=== PATIENT | female | born 1935 | race Caucasian/White ===

== ENCOUNTER 2016-06-02 21:43 | Inpatient (IN) | payer OTHER, MEDICARE ==
[2016-06-02 22:13] LABS: ABSOLUTE NEUTROPHIL COUNT 5.6 K/mm3 (1.8-7.7); BASO % 0.5 % (0.2-1.0); EOS # 0.2 (0.0-0.5); EOS % 2.7 % (0.9-2.9); HEMATOCRIT 38.2 % (37.0-47.0); HEMOGLOBIN 12.6 gm/l (12.0-16.0); IMM NEUT% 0.5 % (0-1); LYMPH # 1.2 (1.0-4.8); LYMPH % 15.9 % (15-45); MEAN PLATELET VOLUME 9.3 fl (7.4-10.4); MONO # 0.7 (0.0-0.8); MONO % 8.7 % (4-12); NEUT % 71.7 % (43-75); PLATELET COUNT 278 K/mm3 (130-400); RED CELL DISTRIBUTION WIDTH 13.1 % (11.5-14.5)
[2016-06-02 22:27] LABS: ALB/GLOB RATIO 1.3 (>1.0); ALBUMIN 3.9 gm/dL (3.5-5.7); CALCIUM 9.2 mg/dL (8.6-10.3)
[2016-06-02] MEDS ORDERED: SODIUM CHLORIDE 0.9% 1,000 ML ONE (23:01)
[2016-06-02] MEDS ORDERED: ONDANSETRON 4 MG/2ML 2 ML VIAL ONE (23:01)
[2016-06-02] MEDS ORDERED: HYDROMORPHONE HCL 0.5 MG/0.5 ML SYRINGE ONE ×2 (23:01→23:34)
[2016-06-02] MEDS ORDERED: LIDOCAINE 2% UROJECT 10 ML ONE (23:01)
[2016-06-03 00:14] LABS: SPECIFIC GRAVITY 1.025 (1.001-1.030); URINE APPEARANCE CLEAR; URINE BILIRUBIN NEGATIVE (NEGATIVE); URINE BLOOD NEGATIVE (NEGATIVE); URINE COLOR LIGHT YELLOW; URINE GLUCOSE (UA) NEGATIVE (NEGATIVE); URINE LEUKOCYTE ESTERASE NEGATIVE (NEGATIVE); URINE NITRITE NEGATIVE (NEGATIVE); URINE PROTEIN NEGATIVE (NEGATIVE); URINE UROBILINOGEN NORMAL (0-1 mg/dl)
[2016-06-03 00:36] VITALS: BMI 23.4
[2016-06-03] MEDS ORDERED: MORPHINE SULFATE 2 MG/ML SYRINGE IV PRN ×2 (00:45→07:29)
[2016-06-03] MEDS ORDERED: HYDROcodone/ACETAM 7.5/325MG TABLET PO PRN (00:45)
[2016-06-03] MEDS ORDERED: MENTHOL/CETYLPYRD 1 EACH LOZENGE PO PRN (00:45)
[2016-06-03] MEDS ORDERED: ONDANSETRON 4 MG/2ML 2 ML VIAL IV PRN ×2 (00:45→12:48)
[2016-06-03] MEDS ORDERED: D5 1/2NS with 20 mEq KCL 1,000 ML IV SCH (00:45)
[2016-06-03] MEDS ORDERED: BLISTEX LIPSTICK 1 EACH TP PRN (00:45)
[2016-06-03] MEDS ORDERED: MORPHINE SULFATE 4 MG/ML SYRINGE ONE (00:54)
[2016-06-03] MEDS ORDERED: SODIUM CHLORIDE 0.9% FLUSH 10 ML ONE ×2 (00:54→08:42)
[2016-06-03] MEDS ORDERED: PUMP TUBING ONE ×2 (01:08→23:55)
[2016-06-03] MEDS ORDERED: MORPHINE SULFATE 4 MG/ML SYRINGE IV ONE (01:18)
[2016-06-03] MEDS ORDERED: INSULIN ASPART (DOSE) 100 UNITS/1 ML SUB-Q PRN ×2 (01:45→16:40)
[2016-06-03] MEDS ORDERED: MORPHINE SULFATE 4 MG/ML SYRINGE IV PRN ×2 (01:46→07:03)
[2016-06-03 02:32] LABS: INR 1.03; PROTHROMBIN TIME 10.8 SECONDS (9.3-11.4)
[2016-06-03 06:01] LABS: HEMATOCRIT 34.9 % (37.0-47.0); HEMOGLOBIN 11.5 gm/l (12.0-16.0); MEAN CELL VOLUME 88.4 fl (81.0-99.0); MEAN CORPUSCULAR HEMOGLOBIN 29.1 pg (27.0-31.0)
[2016-06-03 06:32] LABS: CALCIUM 10.2 mg/dL (8.6-10.3)
--- NOTE | 2016-06-03 07:02 | PDOC43 ---
- Subjective Subjective: Reports Pain Tolerable (Pt doing ok if she doesn't move her right leg. Pt did not have any pain prior to her fall. SHe has not had any recent colds. She would like to talk to me about the risks associated with non-op and surgical treatments), Denies Chest Pain, Denies Shortness of Breath, Denies Nausea, Denies Vomiting, Denies Fever - Objective Vital Signs Temperature 98.2 F 06/03/16 00:30 Pulse Rate 88 06/03/16 00:30 Respiratory Rate 16 06/03/16 06:24 Blood Pressure 127/73 06/03/16 00:30 O2 Saturation by Pulse Oximetry 97 06/03/16 00:30 Oxygen Delivery Method Room Air Oxygen Flow Rate 0 Laboratory 06/03/16 05:20 06/03/16 05:20 06/03/16 06/03/16 05:28 05:20 RBC 3.95 L Anion Gap 6 L Estimated GFR 96 H POC Capillary Glucose 231 H Active Medication Orders Category Date Time Status D5 1/2NS with 20 mEq KCL [D51/2NS with 20 mEq KCL] 1, Med 06/03/16 00:45 Active 000 ml IV 125 mls/hr Hydrocodone Bit/Acetaminophen [[place] 7.5/325] Med 06/03/16 00:45 Active 0.5 - 2 tab PO Q4H PRN Insulin Aspart (Dose) [Novolog (Dose)] Med 06/03/16 01:45 Active See Protocol SUB-Q WM/BEDTIME PRN Lip [place] [Blistex] Med 06/03/16 00:45 Active 1 each TP PRN PRN Menthol/Cetylpyridinium [Cepacol] Med 06/03/16 00:45 Active 1 each PO PRN PRN Morphine Sulfate Med 06/03/16 00:45 Active 2 - 4 mg IV Q1H PRN Morphine Sulfate Med 06/03/16 01:46 Active 2 - 4 mg IV Q1H PRN Ondansetron 4 mg/2ml Vial [Zofran] Med 06/03/16 00:45 Active 4 mg IV Q6H PRN Sodium Chloride 0.9% Flush [Normal Saline 10ml Flush] Med 06/03/16 00:45 Active 10 - 50 ml IV PRN PRN Intake and Output 06/01/16 06/02/16 06/03/16 23:59 23:59 23:59 Intake Total 1441 Output Total 850 Balance 591 General: Afebrile HEENT: EOMI Lungs: Clear to Auscultation Bilaterally Cardiovascular: Regular Rate and Rhythm - Left Lower Extremity Incision: No Ecchymosis Motor: Extensor Hallucis Longus: 5/5, Tibialis Anterior: 5/5, Gastrocnemius: 5/5 , Peroneals: 5/5 Gross Sensation to Light Touch: Present: Deep Peroneal Nerve, Superficial Peroneal Nerve, Medial Plantar Nerve, Lateral Plantar Nerve, Sural Nerve, Saphenous Nerve Capillary Refill: < 3 Seconds Motion: PROM: FF-->95 degrees, Abd: 30 degrees, IR: 10 degrees, ER: 20 degrees - Right Lower Extremity Incision: No Erythema, No Rash, No Ecchymosis Motor: Extensor Hallucis Longus: 4/5, Tibialis Anterior: 4/5, Gastrocnemius: 4/5 , Peroneals: 4/5 Gross Sensation to Light Touch: Present: Deep Peroneal Nerve, Superficial Peroneal Nerve, Medial Plantar Nerve, Lateral Plantar Nerve, Sural Nerve, Saphenous Nerve Capillary Refill: < 3 Seconds (No motion of the right hip is possible secondary to hip and groin pain. Positive logroll test) - Problems (1) Displaced fracture of right femoral neck Status: Acute - Disposition HD#1 s/p fall with a right displaced femoral neck fracture Pt is NPO with IVF. Please see dictated consultation for full ortho consult. --Spoke to the patient today about her problem. We discussed non-op and surgical treatments. The patient is a full code. --I recommended a right hip hemiarthroplasty. I spoke to her about the risks associated with surgery which include, but are not limited to, infection, dislocation, leg length discrepancy, persistent pain, need for future surgery, DVT, PE, pneumonia, NC, stroke and even --I will plan to speak to the medical team about the patient. Her PCP is Dr. Carolina at [facility]. --Ancef 2gm IV furnace combustion analyst to the OR.
--- NOTE | 2016-06-03 07:04 | CONS ---
Kathie Orona ADMIT DATE: 06/03/2016 ATTENDING PHYSICIAN: Dr. Frederic Owens. CONSULTING PHYSICIAN: Chucho Tong M.D. PRIMARY CARE PHYSICIAN: Kyleigh Carolina M.D. in [place], [place]. REASON FOR CONSULTATION: Perioperative medical management. HISTORY: Kathie is a 81-year-old female who is the for the most part healthy. She does have newly diagnosed diabetes as well as underlying hypertension. 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 She had immediate pain and was unable to bear weight. She did not suffer any other injuries. Did not hit her head. She was brought to the emergency room and was found to have a femoral neck fracture on the right. She was subsequently admitted to orthopedics with plans for hospitalist consult for medical clearance and perioperative management in preparation for surgery. REVIEW OF SYSTEMS: No headache. No visual symptoms. No difficulty swallowing. No chest pain or shortness of breath. No heart palpitations. No nausea, vomiting, diarrhea. No recent bowel or bladder changes. No extremity weakness, numbness, tingling or swelling other than her hip pain from her fracture. PAST MEDICAL HISTORY: 1. Hypertension. 2. Diabetes, this was just diagnosed within the last week or two by her primary care physician. She is undergoing diabetic education, but has not actually been started on any medications. PAST SURGICAL HISTORY: 1. Total abdominal hysterectomy in the distant past for bleeding ovaries remain. 2. Cholecystectomy. 3. Cataract surgery. 4. Bladder suspension surgery within the last year or two. ALLERGIES: No known drug allergies. CURRENT MEDICATIONS: Amlodipine 10 mg by mouth daily. SOCIAL HISTORY: She lives in [place]. She has a twin sister who lives nearby. Two sons and a daughter also live in the area. Her daughter is skirt trimmer of the [employer] here in [place] along with the patient's son-in-law. No alcohol, tobacco, or drug use. She is very active, vigorous, and continues to volunteer at the [employer] in [place]. FAMILY HISTORY: Father had cancer. Her grandmother had diabetes. Sister had diabetes. OBJECTIVE: VITAL SIGNS: Stable. She is afebrile. GENERAL: This is a well developed, well nourished elderly female. She is alert and calm. She is a bit sleepy from pain medications and in no distress. HEENT: Normocephalic, atraumatic. Tympanic membranes are intact. Orophyarnx is moist. NECK: Supple. LUNGS: Clear. HEART: Regular. ABDOMEN: Soft. EXTREMITIES: Right lower extremity is externally rotated. She is neurovascularly intact. No sensory deficits. No edema. LABORATORY: CBC with a white count of 7.8, hemoglobin 12.6, hematocrit 38.2, platelets 278, chemistry panel, sodium 140, potassium 3.8, chloride 108, carbon dioxide 26, BUN 25, creatinine 0.9, glucose 152, total bilirubin 0.8, AST 19, ALT 24, alk phos 59. Urinalysis is with 2+ ketones, otherwise clear. DIAGNOSTICS: EKG shows normal sinus rhythm. No acute ST or T-wave abnormalities. Pelvic x-ray's show a right femoral neck fracture. Chest x-ray with normal cardiac silhouette. No infiltrates or effusions. ASSESSMENT: 1. Ground level fall with a right hip femoral neck fracture. 2. Chronic hypertension at baseline. 3. Newly diagnosed diabetes within the last week. PLAN: She has been admitted to orthopedics with plans to go to surgery tomorrow. Management as per orthopedics. In regards to her hypertension we will resume her amlodipine as tolerated in the postoperative period. Parameters will be written. In regards to her newly diagnosed diabetes we will go ahead and place her on sliding scale only and follow closely. May consider long acting insulin as necessary while in the hospital otherwise, we will defer further management of this to the outpatient setting. Deep venous thrombosis will be as per orthopedics. Further care is dictated by clinical course. JOB: [id number] CC: Dr. Kyleigh Carolina
[2016-06-03] MEDS ORDERED: CEFAZOLIN SODIUM 2 GRAM PREMIX 2 G in Premix (D5W) 100 ml 1 EACH IV PRN (07:18)
--- NOTE | 2016-06-03 08:10 | RAD ---
RIGHT HIP AND AP PELVIS SERIES HISTORY: Ground level fall with right hip pain, initial encounter. Frontal view of the pelvis with frontal and crosstable lateral views of the right hip. PELVIC RING: Grossly intact taking into account rotation. HIP ALIGNMENT: Grossly unremarkable. HIP JOINT SPACES: Preserved. Minor osteophyte formation.. FRACTURE: Subcapital femoral neck fracture with associated varus and mild posterior angulation of the femoral shaft.. POSTSURGICAL CHANGE: Right-sided pelvic surgical clip. IMPRESSION: Subcapital right femoral neck fracture with associated varus angulation..
--- NOTE | 2016-06-03 08:15 | RAD ---
RIGHT KNEE 2 VIEWS HISTORY: Ground-level fall with right hip pain. Frontal and crosstable lateral views of the right knee. COMPARISON: None. ALIGNMENT: Grossly unremarkable.. JOINT SPACES: Moderate narrowing at the medial compartment with osteophyte formation... JOINT EFFUSION: Limited assessment due to obliquity of crosstable lateral view. CALCIFICATIONS: No abnormal calcifications noted. FRACTURE: No displaced acute fracture. IMPRESSION: Moderate degeneration of the medial compartment. No displaced acute fracture identified.
--- NOTE | 2016-06-03 08:16 | RAD ---
PORTABLE CHEST RADIOGRAPH HISTORY: Ground-level fall with right hip pain. Frontal portable chest radiograph dated 06/02/2016. COMPARISON: None. FINDINGS: FOCAL AIRSPACE OPACITY: No gross airspace consolidation. PLEURAL EFFUSION: None. CARDIOMEDIASTINAL SILHOUETTE: Borderline cardiomegaly. Tortuous, ectatic aorta. PNEUMOTHORAX: None identified. OSSEOUS STRUCTURES: No grossly destructive lesions. IMPRESSION: Borderline cardiomegaly without vascular congestion or pulmonary edema. Tortuous, ectatic aorta.
[2016-06-03] MEDS ORDERED: IV START KIT ONE ×2 (08:42→11:19)
[2016-06-03] MEDS ORDERED: SODIUM CHLORIDE 0.9% 1,000 ML IV SCH (08:45)
[2016-06-03] MEDS ORDERED: PRIMARY W/MICRODRIP 60 DROPS/ML ONE (11:06)
[2016-06-03] MEDS ORDERED: LACTATED RINGERS 1,000 ML ONE (11:19)
[2016-06-03] MEDS ORDERED: MIDAZOLAM HCL 5 MG/5 ML VIAL ONE (11:53)
[2016-06-03] MEDS ORDERED: FENTANYL 5 ML ONE (11:53)
[2016-06-03] MEDS ORDERED: PROPOFOL 20 ML IV ONE (11:55)
[2016-06-03] MEDS ORDERED: BUPIVACAINE 0.75% SPINAL AMPUL 2 ML ONE (11:56)
[2016-06-03] MEDS ORDERED: SPINAL PROCEDURAL TRAY 1 EACH ONE (11:56)
[2016-06-03] MEDS ORDERED: PROMETHAZINE HCL 25 MG/ML VIAL IM PRN (12:48)
[2016-06-03] MEDS ORDERED: FENTANYL 100 MCG/2 ML VIAL IV PRN (12:48)
[2016-06-03] MEDS ORDERED: HYDROMORPHONE HCL 1 MG/ML SYRINGE IV PRN (12:48)
[2016-06-03] MEDS ORDERED: EPHEDRINE SULFATE 50 MG/ML 1ML VIAL ONE (12:48)
[2016-06-03] MEDS ORDERED: LACTATED RINGERS 1,000 ML IV SCH (13:00)
--- NOTE | 2016-06-03 15:02 | PCMBPN ---
Brief Post Op Note: Date of Procedure: 06/03/16 Preoperative Diagnosis: 1. Right hip displaced femoral neck fracture Postoperative Diagnosis: 1. [Same] Procedure: Right hip hemiarthroplasty Surgeon: Frederic Owens MD Assist: Emigdio DUARTE, Shad DAVENPORT Anesthesia: Spinal Findings: as expected, the patient has a Depuy Size 4 Hitchcock Stem, Unipolar 47 and a -3 head and a std neck Condition: extubated, stable vitals, transferred to pacu Complications: None IV Fluids: 1500 mLs of LR Urine Output: [] mLs Estimated Blood Loss: 300 mLs Tourniquet Time: [N/A] Specimens: [N/A] Implants: See above Drains: [N/A] PLAN: WBAT On the RLE. Posterior hip precautions. Lovenox on POD#1. Oxycodone for pain control and Ancef x 24 hours post-op.
[2016-06-03] MEDS ORDERED: CALCIUM CARBONATE 500 MG TAB.CHEW PO PRN (15:27)
--- NOTE | 2016-06-03 15:53 | RAD ---
PELVIS COMPARISON: Right hip and pelvis, 06/02/2016 HISTORY: Right hip fracture. Postop right total hip arthroplasty. FINDINGS: Views: AP pelvis. Bones: Normal. Joints: Satisfactory appearance of right hip unipolar uncemented arthroplasty Soft tissues: Normal postoperative air and lateral skin melissa. IMPRESSION: 1. Satisfactory appearance of the right hip unipolar uncemented arthroplasty.
[2016-06-03] MEDS: ACETAMINOPHEN 500 MG TABLET PO SCH ×2 (16:35→21:49)
[2016-06-03] MEDS: LACTATED RINGERS 1,000 ML IV SCH (17:06)
[2016-06-03] MEDS: TRAMADOL HCL 50 MG TABLET PO PRN (17:29)
[2016-06-03] MEDS: ASCORBIC ACID 500 MG TABLET PO SCH (20:22)
[2016-06-03] MEDS: DOCUSATE SODIUM 100 MG CAPSULE PO SCH (20:23)
[2016-06-03] MEDS: OXYCODONE HCL 5 MG TABLET PO PRN (20:23)
[2016-06-04] MEDS: LACTATED RINGERS 1,000 ML IV SCH ×2 (00:02→09:13)
[2016-06-04] MEDS: TRAMADOL HCL 50 MG TABLET PO PRN ×2 (00:02→06:15)
[2016-06-04] MEDS: ACETAMINOPHEN 500 MG TABLET PO SCH ×4 (04:27→21:42)
[2016-06-04 07:47] LABS: HEMATOCRIT 32.5 % (37.0-47.0); HEMOGLOBIN 10.7 gm/l (12.0-16.0); MEAN CELL VOLUME 88.6 fl (81.0-99.0); MEAN CORPUSCULAR HEMOGLOBIN 29.2 pg (27.0-31.0); MEAN CORPUSCULAR HGB CONC 32.9 g/dl (33.0-37.0); RED CELL DISTRIBUTION WIDTH 13.1 % (11.5-14.5)
--- NOTE | 2016-06-04 07:53 | PDOC43 ---
- Subjective Subjective: Reports Pain Tolerable, Denies Chest Pain, Denies Shortness of Breath, Denies Nausea, Denies Vomiting (Slept well last night, alert to time and place. Appropriate conversation. Daughter is present.) - Objective Vital Signs Temperature 97.9 F 06/04/16 03:25 Pulse Rate 74 06/04/16 03:25 Respiratory Rate 19 06/04/16 03:25 Blood Pressure 121/67 06/04/16 03:25 O2 Saturation by Pulse Oximetry 94 06/04/16 03:25 Oxygen Delivery Method Room Air Oxygen Flow Rate 0 Laboratory 06/03/16 05:20 06/03/16 05:20 06/03/16 06/03/16 06/03/16 21:48 14:47 11:12 POC Capillary Glucose 140 H 112 H 116 H Active Medication Orders Category Date Time Status Acetaminophen [Tylenol] Med 06/03/16 15:27 Active 1,000 mg PO Q6H Ascorbic Acid [Vitamin C] Med 06/03/16 21:00 Active 500 mg PO BID Bisacodyl [Dulcolax] Med 06/06/16 15:05 Active 10 mg LA DAILY PRN Calcium Carbonate [Tums] Med 06/03/16 15:27 Active 1,000 - 2,000 mg PO Q2H PRN Docusate Sodium [Colace] Med 06/03/16 21:00 Active 100 mg PO BID Enoxaparin Sodium [Lovenox] Med 06/04/16 13:22 Active 40 mg SUB-Q Q24H Insulin Aspart (Dose) [Novolog (Dose)] Med 06/03/16 16:40 Active See Protocol SUB-Q WM/BEDTIME PRN Lactated Ringers 1,000 ml Med 06/03/16 15:27 Active IV 125 mls/hr Magnesium Hydroxide [Milk of Magnesia] Med 06/04/16 15:05 Active 30 ml PO DAILY PRN Multivitamins [One-A-Day] Med 06/04/16 09:00 Active 1 tab PO DAILY Ondansetron 4 mg/2ml Vial [Zofran] Med 06/03/16 15:27 Active 4 - 6 mg IV Q6H PRN Oxycodone HCl [Roxicodone] Med 06/03/16 15:27 Active 5 - 10 mg PO Q4H PRN Sodium Chloride 0.9% Flush [Normal Saline 10ml Flush] Med 06/03/16 15:35 Active 10 - 50 ml IV PRN PRN Sodium Chloride 0.9% Flush [Normal Saline 10ml Flush] Med 06/03/16 17:00 Active 10 ml IV Q8HR Tramadol HCl [Ultram] Med 06/03/16 17:25 Active 50 mg PO Q6H PRN Intake and Output 06/02/16 06/03/16 06/04/16 23:59 23:59 23:59 Intake Total 4341 1210 Output Total 2230 500 Balance 2111 710 General: Afebrile, Other (sleepy this morning.), No Acute Distress Lungs: Normal Air Movement Abdomen: Soft, No Tenderness Genitourinary: Other (Rangel removed this morning.) Neurological: Alert, Normal Speech Psych/Mental Status: Normal Affect - Right Lower Extremity Incision: Dressing Clean/Dry/Intact, Other (dressing remains in place, no leg bruising or swelling, thigh and calf are soft, pillow between legs, SCDs on lower legs.) Motor: Extensor Hallucis Longus: 5/5, Tibialis Anterior: 5/5, Gastrocnemius: 5/5 , Peroneals: 5/5, Quadriceps: 4/5 Gross Sensation to Light Touch: Present: Deep Peroneal Nerve, Superficial Peroneal Nerve, Medial Plantar Nerve, Lateral Plantar Nerve, Sural Nerve, Saphenous Nerve Capillary Refill: < 3 Seconds Motion: Hip PROM: 0-60, did not assess full ROM, patient resting, had just woken up. Knee PROM: 0-45 - Disposition HD#2 s/p fall with a right displaced femoral neck fracture POD#1 Right Hip Hemiarthroplasty Pain is well controlled with Ultram. Arngel catheter has been removed. Begin Lovenox today for DVT prophylaxis. Continue with Diabetic diet. PT today--WBAT BLE, using walker for ambulating, right hip posterior hip precautions. Anticipate D/C to SNF or Home with home health daily or every other day visits-- discussed with care team. Dressing change tomorrow. Work related injury. Ortho appreciates Hospitalist involvement.
[2016-06-04 08:02] LABS: CALCIUM 8.2 mg/dL (8.6-10.3)
[2016-06-04] MEDS: ONDANSETRON 4 MG/2ML 2 ML VIAL IV PRN ×2 (09:08→14:28)
[2016-06-04] MEDS: DOCUSATE SODIUM 100 MG CAPSULE PO SCH ×2 (09:13→21:41)
[2016-06-04] MEDS: MULTIVITAMINS 1 TAB TABLET PO SCH (09:13)
[2016-06-04] MEDS: ASCORBIC ACID 500 MG TABLET PO SCH ×2 (09:13→21:41)
[2016-06-04] MEDS: OXYCODONE HCL 5 MG TABLET PO PRN ×3 (09:51→21:41)
--- NOTE | 2016-06-04 11:52 | PDOC43 ---
- Subjective Chief Complaint: Hip Fx Slept well. Onset of positional dizziness this AM. No WOODWARD, No F/C. No CP/SOB. PT/OT eval c/w BPV. Subjective: Reports Pain Tolerable, Reports Tolerating Diet Well, Reports Adequate Oral Intake, Reports Urinating Without Difficulty, Denies Shortness of Breath, Denies Cough, Denies Chest Pain, Denies Abdominal Pain, Denies Nausea, Denies Vomiting, Denies Fever, Denies Chills - Objective Vital Signs Temperature 98.0 F 06/04/16 08:17 Pulse Rate 70 06/04/16 08:17 Respiratory Rate 12 06/04/16 07:00 Blood Pressure 117/73 06/04/16 08:17 O2 Saturation by Pulse Oximetry 92 06/04/16 08:17 Oxygen Delivery Method Room Air Oxygen Flow Rate 0 Intake and Output 06/03/16 06/04/16 06/05/16 06:59 06:59 06:59 Intake Total 1441 4110 Output Total 850 1880 Balance 591 2230 General: Alert, Oriented x3, Cooperative, No Acute Distress HEENT: Atraumatic, Mucous membr. moist/pink Lungs: Clear to Auscultation Bilaterally Cardiovascular: Regular Rate and Rhythm Abdomen: Soft, Normal Bowel Sounds, No Tenderness, No Distention Extremities: Normal Pulses, No Edema Wound: Dressing Clean/Dry/Intact Laboratory 06/04/16 07:38 06/04/16 07:38 06/04/16 06/04/16 06/03/16 11:36 07:38 21:48 RBC 3.67 L MCHC 32.9 L Estimated GFR 119 H POC Capillary Glucose 160 H 140 H Calcium 8.2 L 06/03/16 14:47 RBC MCHC Estimated GFR POC Capillary Glucose 112 H Calcium Current Medications: Current meds reviewed in EMR. - Problems: Assessment/Plan (1) Displaced fracture of right femoral neck Status: Acute Assessment/Plan: POD #1. Doing well. Lovenox for DVT proph. Post-op as per ortho. (2) Dizziness Status: Acute Assessment/Plan: Onset this AM. PT exam c/w BPV. Pt has had some sx in past. Supportive care and follow. (3) DM2 (diabetes mellitus, type 2) Qualifiers: Diabetes mellitus complication status: without complication Status: Chronic Assessment/Plan: Recent dx not on any chronic meds. Stable on minimal SS. (4) HTN (hypertension) Qualifiers: Hypertension type: essential hypertension Qualifier Code: (I10) Essential (primary) hypertension Status: Chronic Assessment/Plan: Holding usual amlodipine d/t well controlled BP. Resume as tolerated. VTE Prophylaxis: Lovenox. Disposition: Anticipate d/c 1-2 days.
[2016-06-04] MEDS: ENOXAPARIN SODIUM 40 MG/0.4 ML SYRINGE SUB-Q SCH (13:46)
[2016-06-04] MEDS ORDERED: MAGNESIUM HYDROXIDE 30 ML UDCUP PO PRN (15:05)
[2016-06-04] MEDS ORDERED: SCOPOLAMINE 1.5 MG/72 HR 1 EACH PATCH TD ONE (15:31)
[2016-06-04] MEDS ORDERED: MORPHINE SULFATE 4 MG/ML SYRINGE IV PRN (17:05)
[2016-06-04] MEDS: MORPHINE SULFATE 2 MG/ML SYRINGE IV PRN (19:33)
[2016-06-05] MEDS: MORPHINE SULFATE 2 MG/ML SYRINGE IV PRN ×6 (00:23→15:07)
[2016-06-05] MEDS: ACETAMINOPHEN 500 MG TABLET PO SCH ×4 (03:35→21:29)
[2016-06-05] MEDS: OXYCODONE HCL 5 MG TABLET PO PRN ×5 (03:35→21:29)
[2016-06-05 05:44] LABS: MEAN CORPUSCULAR HEMOGLOBIN 29.7 pg (27.0-31.0); MEAN CORPUSCULAR HGB CONC 33.3 g/dl (33.0-37.0); RED CELL DISTRIBUTION WIDTH 13.1 % (11.5-14.5)
[2016-06-05 06:04] LABS: CALCIUM 8.4 mg/dL (8.6-10.3)
[2016-06-05] MEDS: ONDANSETRON 4 MG/2ML 2 ML VIAL IV PRN (08:02)
--- NOTE | 2016-06-05 08:24 | PDOC43 ---
- Subjective Subjective: Reports Pain Tolerable (Pt doing better today. Using morphine overnight for pain control along with oxycodone. Not dizzy today.), Denies Chest Pain, Denies Shortness of Breath, Denies Nausea, Denies Vomiting, Denies Fever - Objective Vital Signs Temperature 97.4 F 06/05/16 03:24 Pulse Rate 66 06/05/16 03:24 Respiratory Rate 18 06/05/16 03:24 Blood Pressure 126/64 06/05/16 03:24 O2 Saturation by Pulse Oximetry 94 06/05/16 03:24 Oxygen Delivery Method Nasal Cannula Oxygen Flow Rate 1 Laboratory 06/05/16 05:10 06/05/16 05:10 06/05/16 06/05/16 06/04/16 07:59 05:10 21:46 RBC 3.37 L Estimated GFR 119 H POC Capillary Glucose 106 H 163 H Calcium 8.4 L 06/04/16 11:36 RBC Estimated GFR POC Capillary Glucose 160 H Calcium Active Medication Orders Category Date Time Status Acetaminophen [Tylenol] Med 06/03/16 15:27 Active 1,000 mg PO Q6H Ascorbic Acid [Vitamin C] Med 06/03/16 21:00 Active 500 mg PO BID Bisacodyl [Dulcolax] Med 06/06/16 15:05 Active 10 mg [place] DAILY PRN Calcium Carbonate [Tums] Med 06/03/16 15:27 Active 1,000 - 2,000 mg PO Q2H PRN Docusate Sodium [Colace] Med 06/03/16 21:00 Active 100 mg PO BID Enoxaparin Sodium [Lovenox] Med 06/04/16 13:22 Active 40 mg SUB-Q Q24H Insulin Aspart (Dose) [Novolog (Dose)] Med 06/03/16 16:40 Active See Protocol SUB-Q WM/BEDTIME PRN Magnesium Hydroxide [Milk of Magnesia] Med 06/04/16 15:05 Active 30 ml PO DAILY PRN Morphine Sulfate Med 06/04/16 17:05 Active 2 - 4 mg IV Q4H PRN Morphine Sulfate Med 06/04/16 17:07 Active 2 - 4 mg IV Q4H PRN Multivitamins [One-A-Day] Med 06/04/16 09:00 Active 1 tab PO DAILY Ondansetron 4 mg/2ml Vial [Zofran] Med 06/03/16 15:27 Active 4 - 6 mg IV Q6H PRN Oxycodone HCl [Roxicodone] Med 06/03/16 15:27 Active 5 - 10 mg PO Q4H PRN Sodium Chloride 0.9% Flush [Normal Saline 10ml Flush] Med 06/03/16 15:35 Active 10 - 50 ml IV PRN PRN Sodium Chloride 0.9% Flush [Normal Saline 10ml Flush] Med 06/03/16 17:00 Active 10 ml IV Q8HR Tramadol HCl [Ultram] Med 06/03/16 17:25 Active 50 mg PO Q6H PRN Intake and Output 06/03/16 06/04/16 06/05/16 23:59 23:59 23:59 Intake Total 4341 1880 200 Output Total 2230 1750 600 Balance 2111 130 -400 General: Afebrile - Right Lower Extremity Incision: Dressing Clean/Dry/Intact, Alyx Intact (Incision is clean, dry, and intact. No drainage on bandage change today.), No Dressing Saturated, No Shadow Drainage, No Drainage, No Erythema, No Rash, No Ecchymosis Motor: Extensor Hallucis Longus: 5/5, Tibialis Anterior: 5/5, Gastrocnemius: 5/5 , Peroneals: 5/5 Gross Sensation to Light Touch: Present: Deep Peroneal Nerve, Superficial Peroneal Nerve, Medial Plantar Nerve, Lateral Plantar Nerve, Sural Nerve Capillary Refill: < 3 Seconds - Problems (1) Displaced fracture of right femoral neck Status: Acute - Disposition POD#2 s/p fall with a right displaced femoral neck fracture with a right hip hemiarthroplasty Pain is still an issue needing to take oxycodone and morphine. Dizziness is improved Rangel catheter has been removed. Lovenox for DVT prophylaxis. Continue with Diabetic diet. PT today--WBAT BLE, using walker for ambulating, right hip posterior hip precautions. Anticipate D/C to SNF or Home with home health and family support possibly on Thursday -discussed with care team. Dressing changed today. Work related injury. Ortho appreciates Hospitalist involvement.
--- NOTE | 2016-06-05 10:29 | HP ---
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 This was a mechanical fall resulting in pain in her right hip and groin. She had an inability to bear weight. She states that normally she walks without a problem. The patient was brought to the [facility] where she was diagnosed with a right hip displaced femoral neck fracture and I was called in consultation. The patient continues to have pain on this right side. Any motion of the right leg causes her pain and discomfort, especially with rotation of her leg. She is sitting in bed with her leg slightly externally rotated. She states that overall she thinks she is in good health. Her PCP is Dr. Carolina at [facility]. The patient has had no problems in terms of her hip prior to this. She denies any complaints of arthritic or pain on the right side. She is here with her sister and would like to discuss with me her options. Her daughter is coming into town. The patient briefly saw the hospitalist and would like to talk to me about the pros and cons of surgery. PAST MEDICAL HISTORY: Significant for having a previous gall bladder removal, hysterectomy, cataract surgery as well as surgery to help with a prolapsed bladder. ALLERGIES: NKDA MEDICATIONS: Amlodipine. She is not currently on any diabetic medication, but was recently diagnosed with having type 2 diabetes. SOCIAL HISTORY: The patient works at the [employer], however she is retired. She has 3 children. Her daughter, Ronna, lives in [place]. REVIEW OF SYSTEMS: The patient notes no fevers, chills, problems breathing or any chest pain or dramatic loss of weight. PHYSICAL EXAMINATION: The patient is alert and oriented x3 in no acute distress. Vital signs: Temperature 98, heart rate 88, BP 127/73, respirations 18, O2 sat 97% on room air. HEENT: EOMI bilaterally. Neck is supple. HEART: Regular rate LUNGS: Clear to auscultation bilaterally. ABDOMEN: Soft, NT and non-distended. Physical exam of the left lower extremity, non-injured extremity, shows the patient has 5/5 strength of her EHL, TA, GA and peroneals. Patient has gross sensation to light touch in the distribution of DP, SP, MP, LP, sural and saphenous nerves. The patient can grossly circumduct the foot. PROM of the left hip demonstrates forward flexion of 95 degrees, abduction to 30 degrees, IR to 10 degrees, ER to 20 degrees. Physical exam of the right lower extremity, or injured extremity, demonstrates no signs of bruising however, a log roll test or any motion of the right leg causes pain in her right groin. She is sitting in the bed with her leg slightly flexed and externally rotated. She has 4/5 strength of her EHL, TA, GA and peroneals. She can grossly circumduct her foot. She has a 1+ PT pulse. PROM is not possible secondary to pain. I do not appreciate any bruising of the hip. LABS: Electrolytes are unchanged over the last 12 hours. Sodium 138 Potassium 3.8 Chloride 106 Bi-carb 30 BUN 15 Creatinine 0.6 CBC; white blood cell count is 11, hematocrit 34.9, platelets 231, INR 1.03, there is a type and screen drawn for the blood bank. RADIOGRAPHS: Xrays performed on 06/02/16 demonstrate a displaced right femoral neck fracture. The patient appears to have a Garden IV fracture. No signs of osteoarthritis in the right hip. The patient did have pain in her knee. I do not appreciate any fracture or any bony abnormalities of the right knee. Chest xray performed on 06/02/16; the patient has good lung markings on both sides. I do not appreciate any acute cardiopulmonary problems. EKG is on the chart. IMPRESSION: The patient is a 81-year-old female with a displaced right femoral neck fracture who has the inability to bear weight. PLAN: I spoke to the patient regarding her options. At this point in time I think she would be best served with a right hip hemiarthroplasty. I spent some time this morning reviewing with the patient what this surgery would entail, what her injury involves and the importance of doing surgery in terms of getting her up out of bed and sitting in a chair or even ambulating. I told that doing surgery is not without risk. We spoke about the risks of infection, instability, leg length inequality, injury to surrounding nerves and blood vessels, DVT, PE, stroke and even . The patient states she understands these risks and is willing to accept these risks and move forward if this would help her ambulatory status. We will plan on the patient going to surgery later today as long as she is medically optimized. The medical service will plan on seeing her later this morning. I asked her to continue to be NPO and we will make the appropriate preparations for doing this surgery later today. I attempted to answer all of her questions and the patient signed the consent form. ROSY: harleen CC: [facility]
[2016-06-05] MEDS: ASCORBIC ACID 500 MG TABLET PO SCH ×2 (10:40→21:29)
[2016-06-05] MEDS: DOCUSATE SODIUM 100 MG CAPSULE PO SCH ×2 (10:40→21:29)
[2016-06-05] MEDS: MULTIVITAMINS 1 TAB TABLET PO SCH (10:44)
--- NOTE | 2016-06-05 11:15 | PDOC43 ---
- Subjective Chief Complaint: Hip Fx Feeling much better this AM. No more dizziness. Working well with PT/OT. Subjective: Reports Pain Tolerable, Reports Tolerating Diet Well, Reports Urinating Without Difficulty, Denies Shortness of Breath, Denies Cough, Denies Chest Pain, Denies Abdominal Pain, Denies Nausea, Denies Vomiting, Denies Fever , Denies Chills - Objective Vital Signs Temperature 98.0 F 06/05/16 08:29 Pulse Rate 84 06/05/16 08:29 Respiratory Rate 20 06/05/16 08:29 Blood Pressure 126/76 06/05/16 08:29 O2 Saturation by Pulse Oximetry 93 06/05/16 08:29 Oxygen Delivery Method Room Air Oxygen Flow Rate 0 Intake and Output 06/04/16 06/05/16 06/06/16 06:59 06:59 06:59 Intake Total 4110 870 Output Total 1880 1850 Balance 2230 -980 General: Alert, Oriented x3, Cooperative, No Acute Distress HEENT: Atraumatic Lungs: Clear to Auscultation Bilaterally Cardiovascular: Regular Rate and Rhythm Abdomen: Soft, Non-Distended, No Tenderness, No Normal Bowel Sounds Extremities: Normal Pulses, No Edema Wound: Well Approximated Laboratory 06/05/16 05:10 06/05/16 05:10 Current Medications: Current meds reviewed in EMR. - Problems: Assessment/Plan (1) Displaced fracture of right femoral neck Status: Acute Assessment/Plan: POD #2. Doing well. Lovenox for DVT proph. Post-op as per ortho. (2) Dizziness Status: Acute Assessment/Plan: Resolved. (3) DM2 (diabetes mellitus, type 2) Qualifiers: Diabetes mellitus complication status: without complication Status: Chronic Assessment/Plan: Recent dx not on any chronic meds. Stable on minimal SS. (4) HTN (hypertension) Qualifiers: Hypertension type: essential hypertension Qualifier Code: (I10) Essential (primary) hypertension Status: Chronic Assessment/Plan: Resume usual amlodipine as tolerated. Parameters written. VTE Prophylaxis: Lovenox. Disposition: Anticipate d/c 1-2 days.
--- NOTE | 2016-06-05 12:18 | OP ---
ANA LAURA ROY : 1935 V [id number] DATE OF PROCEDURE: June 03, 2016 PREOPERATIVE DIAGNOSIS: Right hip displaced femoral neck fracture. POSTOPERATIVE DIAGNOSIS: SAME PROCEDURE: Right hip hemiarthroplasty SURGEON: Frederic Owens M.D. PRE FABRICATOR: FELICIA Beal and ISSAC Kulkarni ESTIMATED BLOOD LOSS: 300 mL IV FLUIDS: 1500 mL or LR URINE OUTPUT: 300 mL SPECIMENS: N/A TOURNIQUET TIME: N/A ANESTHESIA: Spinal FINDINGS: As expected, the patient had a DePuy size 4 [place] stem implanted for this displaced femoral neck fracture. A unipolar size 47 head and a -3 head with a standard neck was placed. CONDITION: The patient was extubated with stable vital signs and transferred to the PACU. COMPLICATIONS: None IMPLANTS: See above DRAINS: N/A PLAN: The patient will be weightbearing as tolerated on the right lower extremity with posterior hip precautions. She will be given Lovenox on postop day #1 for DVT prophylaxis, oxycodone for pain control and Ancef for 24 hours postop. INDICATIONS: The patient is a 81-year-old female who sustained a fall from standing resulting in a displaced right femoral neck fracture. I spoke to the patient regarding the risks as well as the benefits of nonoperative and surgical treatment. Because she does walk at baseline and had a mechanical fall, I thought she would be a good candidate for surgery. I told her that nonetheless there are complications involved. These include, but are not limited to persistent pain in the right hip, instability, leg length discrepancy, infection, injury to surrounding nerves and blood vessels as well as need for PT. We talked about the perioperative period with risks for confusion, stroke, OK and even . After reviewing these risks with the patient she decided to proceed with surgery. PROCEDURE DESCRIPTION: The patient was seen in the preoperative area where I confirmed that the right side was the correct side. We again discussed the reason for her surgery, which is a displaced femoral neck fracture and my recommended procedure was a right hip hemiarthroplasty. I signed the patient's right leg with my initials and the word "yes". I confirmed that we had all the necessary equipment. The patient was then seen by the anesthesia team who spoke to her about the risks and benefits of a general anesthetic vs. a spinal. The thought was that the patient could avoid general anesthesia with a spinal and this was selected. At this point in time the patient said goodbye to her family and was brought from the preoperative area to the operating theater. In her bed she was rolled on her side and the anesthesia team placed a spinal without incident or complication. After this was performed the patient was then placed supine on a standard OR table. A safety belt was placed. We then positioned the patient using a pegboard with an axillary roll in place and placed her in a left lateral decubitus position. We attempted to make sure that all bony prominences were well-padded. We checked to make sure the peroneal nerve was free from compression on her down leg and she had neutral pelvic alignment. Pegboard was placed, one peg was placed posteriorly by the iliac crest, the more anterior one was placed by the pubic symphysis and finally there was a more superior pegboard to hold her chest in place. Once this was performed we then placed a plastic drape around the right lower extremity and her right lower extremity was then prepped and draped in sterile fashion, first with a Chlorhexidine scrub and then prep. At this point, with the steriles drapes in place I marie an incision on the posterior 1/3 of the greater trochanter to prepare for a posterior approach to the hip. The leg was then covered with Ioban after drawing my incision. We then performed a final timeout confirming that the right side was the correct side, that our planned procedure was a right hip hemiarthroplasty. I confirmed that 2 grams of Ancef had been administered prior to this timeout and that we were ready to begin. At this point the leg was placed in neutral position. I made an incision with a #10 blade. I then used [place] cautery to gain good hemostasis and approximately an 8mm incision. I dissected down to the fascia of the gluteus huber and tensor fascia jenny. This was divided with a deep blade. I then placed a Charnley retractor exposing the trochanteric bursa as well as the external rotators. The bursa was excised exposing the piriformis. I placed a tag suture in this and removed the rest of the external rotators as a sleeve tissue, which would later be repaired back to the posterior aspect of the greater trochanter. The sciatic nerve was visualized. It was kept out of the field taking care that the retractors did not touch it. At this point the leg was internally rotated exposing the underlying capsule. I performed a T capsulotomy placing 2 tag sutures in this which would allow for repair at the end of the case. With the capsule transected I placed one retractor superiorly onto the acetabulum gaining greater exposure. The capsulotomy was extended to there. I then was able to expose the femoral neck and head. With the femoral head exposed I used a hip skid and a ball screw to remove the femoral neck. It was then sized at a 47. The cut itself appeared to be almost appropriate to the cut of which I would have planned as 10cm. I used a saw to clean this up. I estimate that the neck length was just slightly long, approximately 14mm from the lesser trochanter. I thought this would be acceptable and decided to see how a trial would fit. I then dislocated the hip exposing the proximal femur. I then used an osteotome box car bracer to try to lateralize my stem. A proximal femoral retractor was then placed on the anterior surface of the femur. I then proceeded to use a lateralizer and sequentially reamed up with a hand woodworking sander. I thought a size 4 had appropriate chatter. I then started with broaches making sure that there was some anteversion, 10 degrees of anteversion placed with each broach. I broached up to a 4 which had good compressive fit. I then trialed a standard neck with a 0 head and 47mm ball. A hip reduction was attempted to reduce. It was too tight so I then switched out the neck to a -3 and was able to reduce the hip. I then did a shuck test and took the leg through a ROM. I thought it was stable and thought it would be appropriate to implant these implants. I asked the nurse to open a G-modeit stem. My plan was to do a press-fit with a -3 neck unipolar device. I irrigated the proximal femur. I irrigated and cleaned out the acetabulum itself making sure there was no residual bone fragments. I then placed the stem in a similar anteversion of 10 degrees. I then impacted the unipolar head onto the stem and it was reduced. I again tested its stability, which was appropriate at 90 degrees with close to 45 degrees of ER. At this point we began to prepare for closing. I took my capsular tissues, placed them through the abductors and tied these down. I then proceeded to take the external rotators, which were taken off as a sleeve, did drill holes and tied these down to the back of the greater trochanter. I again irrigated one last time and closed the IT band with interrupted Vicryl sutures and a StratoFix running Monocryl suture. Once this was closed I proceeded to close the soft tissue with interrupted 0 Vicryl and interrupted 2-0 Vicryl and melissa. At the end of the case a Xeroform, sponges and ABD dressing and tape was placed over the incision itself. Care was taken not to have the hip dislocate as she was transferred from the OR table to her standard bed. Prior to placing the dressing I confirmed with the nursing staff that all sponge and needle counts were correct. The patient was then transferred to the recovery room where she had adequate pain control secondary to a spinal. Our postop plan will be for the patient to be weightbearing as tolerated on this right side. We will have her follow posterior hip precautions, keeping a pillow between her legs and she will start working with PT and OT on postop day #1. We will start Lovenox, 40mg, once a day for DVT prophylaxis. We will use oxycodone and morphine for pain control in addition to Tramadol. The hospitalist's team will continue to follow the patient with me to help me manage her diabetes and other medical comorbidities. ROSY/harleen CC: [facility]
[2016-06-05] MEDS: ENOXAPARIN SODIUM 40 MG/0.4 ML SYRINGE SUB-Q SCH (15:08)
[2016-06-05] MEDS: TRAMADOL HCL 50 MG TABLET PO PRN (19:38)
[2016-06-06] MEDS: ACETAMINOPHEN 500 MG TABLET PO SCH ×4 (02:58→21:05)
[2016-06-06] MEDS: OXYCODONE HCL 5 MG TABLET PO PRN ×2 (02:58→19:12)
[2016-06-06 06:36] LABS: HEMATOCRIT 30.3 % (37.0-47.0); HEMOGLOBIN 9.9 gm/l (12.0-16.0); MEAN CELL VOLUME 88.3 fl (81.0-99.0); MEAN CORPUSCULAR HEMOGLOBIN 28.9 pg (27.0-31.0); MEAN CORPUSCULAR HGB CONC 32.7 g/dl (33.0-37.0)
[2016-06-06 07:17] LABS: CALCIUM 8.4 mg/dL (8.6-10.3)
[2016-06-06] MEDS ORDERED: BISACODYL 10 MG SUP PR ONE (10:14)
[2016-06-06] MEDS: ASCORBIC ACID 500 MG TABLET PO SCH ×2 (10:48→21:05)
[2016-06-06] MEDS: AMLODIPINE BESYLATE 5 MG TABLET PO SCH (10:48)
[2016-06-06] MEDS: MULTIVITAMINS 1 TAB TABLET PO SCH (10:48)
[2016-06-06] MEDS: DOCUSATE SODIUM 100 MG CAPSULE PO SCH ×2 (10:48→21:05)
[2016-06-06] MEDS: TRAMADOL HCL 50 MG TABLET PO PRN ×3 (10:49→21:05)
--- NOTE | 2016-06-06 11:13 | PDOC43 ---
- Subjective Chief Complaint: Hip Fx Patient up at chair/commode today. No BM yet today. Breathing ok, activity tolerance ok. Pain with fair control. Did have some confusion yesterday, morphine stopped. No respiratory c/o currently. - Objective Vital Signs Temperature 98.0 F 06/06/16 08:00 Pulse Rate 58 06/06/16 08:00 Respiratory Rate 18 06/06/16 08:00 Blood Pressure 122/58 06/06/16 10:54 O2 Saturation by Pulse Oximetry 93 06/06/16 08:00 Oxygen Delivery Method Nasal Cannula Oxygen Flow Rate 2 Vital Signs Last 12 Hours Temp Pulse Resp BP Pulse Ox 06/06/16 10:54 122/58 06/06/16 08:00 98.0 F 58 18 101/61 93 06/06/16 03:12 98.2 F 63 16 98/60 95 06/06/16 02:00 16 06/06/16 00:13 98.7 F 64 16 110/62 97 Intake and Output 06/04/16 06/05/16 06/06/16 23:59 23:59 23:59 Intake Total 1880 1200 1191 Output Total 1750 1800 300 Balance 130 -600 891 General: Alert, Mild Distress (some discomfort.) Lungs: Clear to Auscultation Bilaterally Cardiovascular: Regular Rate and Rhythm Abdomen: Soft, Normal Bowel Sounds, Non-Distended Extremities: Other (STEPHANIA hose on bilat.), No Edema Skin: Normal Color Neurological: Normal Speech Psych/Mental Status: Normal Affect Laboratory 06/06/16 06:30 06/06/16 06:30 06/06/16 06/05/16 06/05/16 06:30 19:27 13:03 RBC 3.43 L MCHC 32.7 L Anion Gap 7 L Estimated GFR 96 H POC Capillary Glucose 156 H 151 H Calcium 8.4 L Current Medications: Current meds reviewed in EMR. Active Medications Acetaminophen (Tylenol) 1,000 mg PO Q6H [facility] Last Admin: 06/06/16 10:48 Dose: 1,000 mg Amlodipine Besylate (Norvasc) 10 mg PO DAILY [facility] Last Admin: 06/06/16 10:48 Dose: 10 mg Ascorbic Acid (Vitamin C) 500 mg PO BID [facility] Last Admin: 06/06/16 10:48 Dose: 500 mg Bisacodyl (Dulcolax) 10 mg [place] DAILY PRN PRN Reason: If no BM by POD#3 Calcium Carbonate/Glycine (Tums) 1,000 - 2,000 mg PO Q2H PRN PRN Reason: Heartburn/Indigestion Docusate Sodium (Colace) 100 mg PO BID [facility] Last Admin: 06/06/16 10:48 Dose: 100 mg Enoxaparin Sodium (Lovenox) 40 mg SUB-Q Q24H [facility] Last Admin: 06/05/16 15:08 Dose: 40 mg Insulin Aspart (Novolog (Dose)) 0 units SUB-Q WM/BEDTIME PRN; Protocol PRN Reason: Blood Sugar > Last Admin: 06/05/16 19:38 Dose: 3 units Magnesium Hydroxide (Milk Of Magnesia) 30 ml PO DAILY PRN PRN Reason: If no BM by evening of POD#1 Multivitamins (One-A-Day) 1 tab PO DAILY [facility] Last Admin: 06/06/16 10:48 Dose: 1 tab Ondansetron HCl (Zofran) 4 - 6 mg IV Q6H PRN PRN Reason: Nausea/Vomiting Last Admin: 06/05/16 08:02 Dose: 4 mg Oxycodone HCl (Roxicodone) 5 - 10 mg PO Q4H PRN PRN Reason: Pain (Moderate) Last Admin: 06/06/16 02:58 Dose: 5 mg Sodium Chloride (Normal Saline 10ml Flush) 10 ml IV Q8HR [facility] Last Admin: 06/06/16 02:58 Dose: 10 ml Sodium Chloride (Normal Saline 10ml Flush) 10 - 50 ml IV PRN PRN Last Admin: 06/05/16 15:07 Dose: 10 ml Tramadol HCl (Ultram) 50 mg PO Q6H PRN PRN Reason: Pain (Mild) Last Admin: 06/06/16 10:49 Dose: 50 mg - Problems: Assessment/Plan (1) Displaced fracture of right femoral neck Status: Acute Assessment/Plan: POD #3. Doing well. Lovenox for DVT proph. Post-op as per ortho. Anticipate going to SNF today (2) Dizziness Status: Acute Assessment/Plan: Resolved. (3) DM2 (diabetes mellitus, type 2) Qualifiers: Diabetes mellitus complication status: without complication Status: Chronic Assessment/Plan: Recent dx not on any chronic meds. Stable on minimal SS. (4) HTN (hypertension) Qualifiers: Hypertension type: essential hypertension Qualifier Code: (I10) Essential (primary) hypertension Status: Chronic Assessment/Plan: Resumed usual amlodipine as tolerated. Parameters written. VTE Prophylaxis: Lovenox. Disposition: Anticipate d/c SNF today.
--- NOTE | 2016-06-06 11:22 | PDOC43 ---
- Subjective Subjective: Reports Pain Tolerable, Denies Flatus, Denies Chest Pain, Denies Shortness of Breath, Denies Nausea, Denies Vomiting, Denies Fever - Objective Vital Signs Temperature 98.0 F 06/06/16 08:00 Pulse Rate 58 06/06/16 08:00 Respiratory Rate 18 06/06/16 08:00 Blood Pressure 122/58 06/06/16 10:54 O2 Saturation by Pulse Oximetry 93 06/06/16 08:00 Oxygen Delivery Method Nasal Cannula Oxygen Flow Rate 2 Laboratory 06/06/16 06:30 06/06/16 06:30 06/06/16 06/05/16 06/05/16 06:30 19:27 13:03 RBC 3.43 L MCHC 32.7 L Anion Gap 7 L Estimated GFR 96 H POC Capillary Glucose 156 H 151 H Calcium 8.4 L Active Medication Orders Category Date Time Status Acetaminophen [Tylenol] Med 06/03/16 15:27 Active 1,000 mg PO Q6H Amlodipine Besylate [Norvasc] Med 06/06/16 09:00 Active 10 mg PO DAILY Ascorbic Acid [Vitamin C] Med 06/03/16 21:00 Active 500 mg PO BID Bisacodyl [Dulcolax] Med 06/06/16 15:05 Active 10 mg [place] DAILY PRN Calcium Carbonate [Tums] Med 06/03/16 15:27 Active 1,000 - 2,000 mg PO Q2H PRN Docusate Sodium [Colace] Med 06/03/16 21:00 Active 100 mg PO BID Enoxaparin Sodium [Lovenox] Med 06/04/16 13:22 Active 40 mg SUB-Q Q24H Insulin Aspart (Dose) [Novolog (Dose)] Med 06/03/16 16:40 Active See Protocol SUB-Q WM/BEDTIME PRN Magnesium Hydroxide [Milk of Magnesia] Med 06/04/16 15:05 Active 30 ml PO DAILY PRN Multivitamins [One-A-Day] Med 06/04/16 09:00 Active 1 tab PO DAILY Ondansetron 4 mg/2ml Vial [Zofran] Med 06/03/16 15:27 Active 4 - 6 mg IV Q6H PRN Oxycodone HCl [Roxicodone] Med 06/03/16 15:27 Active 5 - 10 mg PO Q4H PRN Sodium Chloride 0.9% Flush [Normal Saline 10ml Flush] Med 06/03/16 15:35 Active 10 - 50 ml IV PRN PRN Sodium Chloride 0.9% Flush [Normal Saline 10ml Flush] Med 06/03/16 17:00 Active 10 ml IV Q8HR Tramadol HCl [Ultram] Med 06/03/16 17:25 Active 50 mg PO Q6H PRN Intake and Output 06/05/16 06/06/16 06/07/16 06:59 06:59 06:59 Intake Total 870 2191 Output Total 1850 1500 Balance -980 691 General: Afebrile, No Acute Distress Neurological: Grossly Intact, Alert, Oriented x 4 Psych/Mental Status: Normal Affect Peripheral Pulses: Right Posterior Tibialis: 3+/4+, Right Dorsalis Pedis: 3+/4+ - Right Lower Extremity Incision: Dressing Clean/Dry/Intact, Well Approximated, No Drainage, No Erythema , No Rash Motor: Extensor Hallucis Longus: 5/5, Tibialis Anterior: 5/5, Gastrocnemius: 5/5 , Peroneals: 5/5 Gross Sensation to Light Touch: Present: Deep Peroneal Nerve, Superficial Peroneal Nerve, Medial Plantar Nerve, Lateral Plantar Nerve, Sural Nerve, Saphenous Nerve Capillary Refill: < 3 Seconds - Disposition POD#2 s/p fall with a right displaced femoral neck fracture with a right hip hemiarthroplasty Pain is still an issue needing to take oxycodone and morphine. Dizziness is improved Rangel catheter has been removed. Lovenox for DVT prophylaxis. Continue with Diabetic diet. PT today--WBAT BLE, using walker for ambulating, right hip posterior hip precautions. Anticipate D/C to SNF or Home with home health and family support possibly on Thursday -discussed with care team. Dressing changed today. Work related injury. Ortho appreciates Hospitalist involvement. - Additional Comments POD #3 s/p displaced right femoral neck fracture treated with hemiarthroplasty Incision clean and dry. Pain level decreasing. Feels tired and sleepy. Plan is for discharge to SNF today. Continue with Lovenox and pain meds. Daughter present. Discussed status with daughter and Dr. Sheets. Follow up with Dr. Owens on June 18.
[2016-06-06] MEDS ORDERED: BISACODYL 10 MG SUP PR PRN (15:05)
[2016-06-06] MEDS: ENOXAPARIN SODIUM 40 MG/0.4 ML SYRINGE SUB-Q SCH (15:13)
[2016-06-07] MEDS: ACETAMINOPHEN 500 MG TABLET PO SCH (03:22)
[2016-06-07] MEDS: TRAMADOL HCL 50 MG TABLET PO PRN (03:22)
[2016-06-07] MEDS: OXYCODONE HCL 5 MG TABLET PO PRN (07:27)
[2016-06-07 07:43] VITALS: BP 115/65
[2016-06-07] MEDS: AMLODIPINE BESYLATE 5 MG TABLET PO SCH (08:08)
[2016-06-07] MEDS: ASCORBIC ACID 500 MG TABLET PO SCH (08:08)
[2016-06-07] MEDS: MULTIVITAMINS 1 TAB TABLET PO SCH (08:08)
[2016-06-07] MEDS: DOCUSATE SODIUM 100 MG CAPSULE PO SCH (08:08)
--- NOTE | 2016-06-07 18:20 | DS ---
ANA LAURA ROY [id number] DATE OF ADMISSION: 06/02/2016 DATE OF DISCHARGE: 06/07/2016 CONSULTING PHYSICIANS: 1. Dr. Tong for the Hospitalist Service. 2. Dr. Owens for orthopedics. DISCHARGE DIAGNOSES: 1. Femoral neck fracture right leg, now status post open reduction internal fixation. 2. Newly diagnosed Type-2 diabetes mellitus. 3. Hypertension. REASON FOR ADMISSION: The patient is a 81-year-old female who is reported to have tripped on a cord, with a mechanical fall resulting in pain in the right hip and groin, with inability to bear weight. She was diagnosed with a right hip displaced femoral neck fracture and Dr. Owens was called. HOSPITAL COURSE: Her admission labs showed a white blood cell count of 7.8, hemoglobin 12.6, platelets of 278 and INR of 1.03. Chemistry profile; sodium 140, potassium 3.8, chloride 108, C02 of 26, BUN of 25, creatinine of 0.9, glucose of 152 and calcium is 9.2. Liver enzymes are normal. Urinalysis showing 2+ ketones, otherwise negative. Hip and pelvis x-ray with a subcapital right femoral neck fracture with associated varus angulation and knee x-ray with moderate degeneration of the medial compartment, but no fracture. Chest x-ray; borderline cardiomegaly, without vascular congestion or pulmonary edema. The patient underwent right hip hemiarthroplasty by Dr. Owens on 06/03/2016. The Hospitalist Service was consulted and perimeters were written for blood pressure medicine and sliding scale insulin ordered for her newly diagnosed diabetes. She had an unremarkable recovery, although there was a question about the patient and the patient's family's request for placement, but ultimately on 06/07/2016 she was discharged to [facility] in [place]. DISCHARGE MEDICATIONS: 1. Amlodipine 10 mg by mouth daily. 2. Oxycodone 5 mg by mouth every 4-6 hours as needed. 3. Enoxaparin 40 mg subcutaneously daily for DVT prophylaxis. DISCHARGE FOLLOW-UP: German Duarte PA-C, on 06/18/2016 at 1:00 P.M. VITAL SIGNS AT THE TIME OF DISCHARGE: Temperature 98.7. Pulse 76. Blood pressure 115/65. Respirations 16. Saturation 92% on room air. LABS: Blood sugar at the time of discharge was 106. Her hemoglobin on 06/06/2016 was 9.9, with a platelet count of 194. cc: Dr. Kyleigh Owens
--- NOTE | 2016-06-09 17:06 | DS ---
Kathie ROY [id number] : 1935 DATE OF ADMISSION: June 03, 2016 DATE OF DISCHARGE: June 06, 2016 HOSPITAL PROCEDURE: Right hip hemiarthroplasty for a displaced femoral neck fracture. SURGEON: Frederic Owens M.D. 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 She had a mechanical fall resulting in a Garden 4 displaced femoral neck fracture. The patient was brought to the emergency room where she was evaluated by the emergency room team and diagnosed with a femoral neck fracture. The patient and I spoke about the risks and benefits of nonoperative and surgical treatment. Her fall occurred on June 02, 2016 and she had surgery on June 03, 2016. This was a right hip hemiarthroplasty with a DePuy component, a Frontier stem which was PressFit. The patient had surgery for performed under spinal anesthetic. Post surgically the patient was made weight bearing as tolerated. She had posterior hip precautions and the plan was to start Lovenox. On postoperative day number one. The patient's preoperative, hematocrit was 34.9 on postoperative day number one it was 32.5 by the day of discharge. It was 30. The patient had no evidence of orthostatic hypotension. She had normal electrolytes. However on postoperative day number one her course was complicated by dizziness whenever she opened her eyes. We thought this was similar to vertigo rather than a medical complication and the patient was taught by physical therapy to do vertigo exercises in the hope that this would improve. By postoperative day number two her vertigo was improving, she had a significant amount of pain requiring morphine as well as oxycodone. By postoperative day number three she was improved. Her dressing was changed, it was clean, dry and intact. She continued to have 5/5 of her EHL, tibialis anterior, gastroc and peroneals with a 2+ PT pulse. Because of her needs and living alone it was felt thought the patient would be best served by going to a rehab facility and on June 06, 2016 or postoperative day number four the patient was ready to be discharged to the rehab facility. The patient will plan on following with me in approximately 2 weeks. At that time we will evaluate her melissa and potentially removed them. She will continue on Lovenox. She was discharged prescription for oxycodone. Additionally, she finished 24 hours of antibiotics. She was able to maintain her posterior hip precautions and we will call with any questions or concerns. Job [id number] cc: Alba Lin
== END 2016-06-07 08:41 | DRG 470 ==
LOC: ED 21:43 → MS 23:21
PROVIDERS: ADMIT Family Medicine; ATTEND Family Medicine
PROC: 0SR901A Replacement of Right Hip Joint with Metal Synthetic Substitute, Uncemented, Open Approach (ICD-10-PCS; principal; 2016-06-03)
DX: S72.011A Unspecified intracapsular fracture of right femur, initial encounter for closed fracture (principal); E11.9 Type 2 diabetes mellitus without complications; I10 Essential (primary) hypertension; W19.XXXA Unspecified fall, initial encounter; Y93.54 Activity, bowling; Y92.39 Other specified sports and athletic area as the place of occurrence of the external cause; Y99.0 Civilian activity done for income or pay